=== PATIENT | male | born 1965 | race African-American/Black ===

== ENCOUNTER 2020-03-11 21:08 | Emergency (ER) | payer SELFPAY ==
[2020-03-11 21:10] VITALS: BP 150/89; PULSE 99; RESP 16; TEMP 36.9; O2SAT 99; BMI 25.0
--- NOTE | 2020-03-11 22:25 | ED.GENADULT ---
HPI - General Adult General Chief complaint: General Medical Stated complaint: knee pain Time Seen by Provider: 03/11/20 22:04 Source: patient Mode of arrival: wheelchair Limitations: no limitations History of Present Illness HPI narrative: Patient comes to emergency room complaining of left-sided knee pain. Patient states approximately 1 week ago, he woke up in the morning, started having pain behind his knee and then throughout the day, the knee started becoming more swollen. Patient states it hurts to flex his knee. Patient denies any injury. Patient denies fever, no chills, no skin erythema or lacerations complaint: Knee effusion Related Data Previous Rx's Medication Instructions Recorded ibuprofen 600 mg PO TID PRN #14 tab 03/11/20 Allergies Allergy/AdvReac Type Severity Reaction Status Date / Time No Known Allergies Allergy Verified 03/11/20 22:29 Review of Systems Review of Systems: Constitutional : No Weight loss, No Fever, No Chills, No Night Sweats, No Fatigue, No Malaise ENT/Mouth : No Hearing loss, No Ear Pain, No Nasal Congestion, No Sinus Pain, No Hoarseness, No sore throat, No Rhinorrhea, No Swallowing Difficulty Eyes: No Eye Pain, No Swelling, No Redness, No Foreign Body, No Discharge, No Vision Changes Cardiovascular : No Chest Pain, No SOB, No Dyspnea on Exertion, No Orthopnea, No Edema, No Palpitations Respiratory : No Cough, No Sputum, No Wheezing, No Smoke Exposure, No Dyspnea Gastrointestinal : No Nausea, No Vomiting, No Diarrhea, No Constipation, No abdominal Pain, No Hematochezia, No Melena Genitourinary : no irregular bleeding, No Dysuria, No Urinary Frequency, No Hematuria, No Urinary Incontinence, No Urgency, No Flank Pain, No Urinary Flow Changes, No Hesitancy Musculoskeletal : Complaining of swelling of the left knee, pain, no redness Skin : No Skin Lesions, No rash Neuro : No Weakness, No Numbness, No Paresthesias, No Loss of Consciousness, No Dizziness, No Headache Psych : No Anxiety/Panic, No Depression, No SI/HI/AH/VH, No Social Issues, Heme/Lymph: No Bruising, No Bleeding,No Lymphadenopathy Endocrine : No Polyuria, No Polydipsia, No Temperature Intolerance PMF Past Medical History Medical History (Updated 03/11/20 @ 22:30 by Carol Anderson MD) Knee injury Social History Social History Advance Directives: No Physical Exam Vital Signs: Vital Signs: Last Vital Signs Temp 98.4 F 03/11/20 21:10 Pulse 99 03/11/20 21:10 Resp 16 03/11/20 21:10 BP 150/89 H 03/11/20 21:10 Pulse Ox 99 03/11/20 21:10 Body Mass Index 25.0 Appearance: Alert. Oriented X3. No acute distress. Eyes: Pupils equal, round and reactive to light. ENT: Pharynx normal. Neck: Normal inspection. Neck supple. No lymph nodes noted. No crepitus CVS: Normal heart rate and rhythm. Pulses normal. Normal S1 and S2 Respiratory: No respiratory distress. Breath sounds normal. No Wheezing. No rales Abdomen: Soft and nontender. No rigidity. No distention. good BS x4 Skin: Skin warm and dry. Normal skin color. Normal skin turgor. Extremities: Left knee is swollen, obvious joint effusion, not erythematous, not warm to touch. Bedside ultrasound shows a large effusion most noticeable in the superior lateral aspect, small amount of fluid inferior to the patella. Patient unable to bear weight on the left lower extremity Neuro: Oriented X 3. No motor deficit. No sensory deficit. Moving all extermities. No slurred speech. Course Course Course Narrative: I discussed the physical exam and ultrasound with the patient, patient does have a large joint effusion. Patient states he is very afraid of needles, declined arthrocentesis, even if we provide anxiolytics. Patient states that he is willing to try icing his knee, Brian wrapping and NSAIDs. Patient states that if it gets any bigger, he will return. I discussed with the patient that this likely that NSAIDs body itself and eyes will not alleviate the pain and swelling and reduce the large effusion. Also, I discussed with the patient the only way of knowing if there is any infection, would be through analyzing the fluid. But again, patient declined. At this time, joint sepsis is not suspected. However, it cannot be ruled out. Patient will be discharged with instructions to return to emergency room if the knee becomes warm, more painful or does not improve. Patient was provided with crutches Discharge Plan Discharge Clinical Impression: Effusion of knee joint, left Patient Disposition: Home, Self-Care Instructions: Swollen Knee Joint (ED) Additional Instructions: If your knee gets any more swollen, red, more tender, if you have any fever, anything new, please return to emergency room. Prescriptions: New ibuprofen 600 mg tablet 600 mg PO TID PRN (Reason: pain) Qty: 14 RF: 0
[2020-03-11] MEDS: Ibuprofen 600 MG TABLET PO (22:52)
== END 2020-03-11 23:00 | disposition home or self-care (01) ==
PROVIDERS: Emergency Provider Emergency Medicine
DX: M25.462 Effusion, left knee (principal); M25.562 Pain in left knee
CPT/HCPCS: 99283